=== PATIENT | female | born 1990 | race Two or more races ===

== ENCOUNTER 2016-12-21 16:14 | Inpatient (IN) | payer MEDICAID, OTHER ==
--- NOTE | 2016-12-21 16:30 | EDPHY ---
HPI/HX/ROS/PE/MDM Narrative: CHIEF COMPLAINT: Medical clearance for intermediate; possible methamphetamine in vagina HPI: The patient is a 26 y/o female arriving in [employer] custody from the intermediate for medical clearance. The officer reports they witnessed her push an object up her vagina during a strip search. They believe she has a bag of methamphetamine due to evidence of illicit drugs in her cell. The officer is concerned there may be a large quantity of loose methamphetamine still in her vagina. The patient denies putting drugs in her vagina. She also denies any complaints and agrees to a pelvic exam. REVIEW OF SYSTEMS: Aside from elements discussed in the HPI, a comprehensive 10-point review of systems was reviewed and is negative. PMH: Illicit drug abuse. SOCIAL HISTORY: in [employer] custody. Currently living at the intermediate. PHYSICAL EXAM: General:Patient is alert, in no acute distress. ENT:Eyes are normal to inspection. ENT inspection normal. Neck: Normal inspection. Full range of motion. Respiratory:No respiratory distress. Breath sounds normal bilaterally. Cardiovascular: Tachycardic regular rate and rhythm. Strong peripheral pulses. Normal cap refill. Abdomen:The abdomen is nontender to palpation. There are no peritoneal signs. : Plastic bag removed during pelvic exam. Rectal exam is normal. Back: Normal to inspection. No tenderness to palpation. Skin: Normal color. No rash. Warm and dry. Extremities: Normal appearance. Full range of motion. Neuro: Oriented x3. Normal motor function. Normal sensory function. Slightly tremulous. ED Course: This is a 26 y/o female presenting from the intermediate with reported bag full of methamphetamine in her vagina. She denies any complaints during assessment. She is tachycardic at 110 and slightly tremulous, but otherwise asymptomatic. She consented to pelvic examination and removal of any foreign body found there. Just prior to exam, officer at bedside report a plastic bag fell on the ground next to the patient. Pelvic exam was conducted in presence of female staff and revealed plastic bag that I was able to extract without difficulty. Patient placed on cardiac rn. Plan to consult [facility]. 1642: Consulted with Poison Control. . 1658: Patient's HR is now 180. IV established. 2mg IV Ativan administered. 1700: Consulted with Dr. Madrid, toxicology, he recommended treating with benzodiazepines and fluids until her vitals normalized. 1703: The 12 lead EKG was interpreted by myself. Sinus tachycardia rate 180. See hard copy and/or "tracemaster" electronic copy for interpretation. 1715: Patient transferred to trauma bay. HR 190, RR 46, BP 130/113. Patient is disoriented, unable to follow commands, and shaking. Carpopedal spasms and horizontal nystagmus noted. Total of 6mg IV Ativan administered at this time. Labs drawn including CBC, CHEM, troponin, CK, LFTs, BHCG, tox screen. 1724: Additional 2mg IV Ativan administered (8mg total). 1728: Additional 2mg IV Ativan administered (10mg total). 1732: Additional 2mg IV Ativan administered (12mg total). Respiratory rate and heart rate have remained elevated. 1735: Additional 4mg IV Ativan administered (16mg total). BP 116/73, HR 180, RR 40. 1740: Patient is showing signs of improvement. She is less agitated, though she continues to be tachypneic and tachycardic. Additional 4mg IV Ativan administered (20mg total). 1748: Additional 4mg IV Ativan administered (24mg total). 1752: HR 167, RR 32, BP 120/60. 1756: 39.2C. Will apply passive cooling system. 1759: Additional 4mg IV Ativan administered (28mg total). Agitation significantly reduced at this time. Patient remains tachypneic and tachycardic and is now febrile. Passive cooling applied. 1803: Additional 4mg IV Ativan administered (32mg total). 2nd round of labs ordered. 1808: Consulted again with Dr. Madrid, poison control. She is slowly responding to Ativan. He agrees with our current plan to continue with benzo administration until we reach normal vital signs with consideration for rhabdomyolysis and hyperthermia. 1810: Additional 2mg IV Ativan administered (34mg total). 1817: Core temp 37.9C. 1819: Patient appeared to seize for a short time. Her respiratory effort increased significantly. She is not able to protect her airway at this time and will require intubation. 1821: Respiratory therapy at bedside. 1822: Procedure: Rapid sequence intubation. Indication for the procedure was airway protection and respiratory failure. The patient was preoxygenated with 100% oxygen by face mask. The patient was given the following IV medications: 20mg IV Etomidate, 70mg IV rocuronium. During the first attempt a foreign body that appeared to be a plastic bag was identified. We aborted this attempt, reoxygenated the patient via BVM and then removed with McGills forceps during 2nd intubation attempt. The patient was orally endotracheally intubated under direct visualization with a 7.5 ETT. Tracheal intubation was confirmed with misting on the tube; breath sounds were auscultated equally bilaterally; appropriate color change with [place] End Tidal CO2 detector. Chest X-ray shows ETT in good position. The procedure was performed by myself, Dr. Krueger, in conjunction with PA Martin Vences. 1830: Propofol and vecuronium drip ordered as well as additional x-ray of the abdomen ordered to observe for further foreign bodies. 1835: Consulted with Dr. Cardozo, hospitalist, at patient bedside. She accepts admission to the ICU for methamphetamine overdose. 1837: Chest x-ray shows ET tube in good condition. No obvious foreign bodies on chest or abdomen. I viewed the images myself on the PACS system. 1840: Rectal exam is normal. Hernandez catheter inserted by circuit board repair technician. A time of admission to the ICU, patient has received a total of 34mg Ativan, has been intubated, and is currently on a propofol and vecuronium drip to maintain sedation. Her tox screen is positive for cocaine, opiates, and methamphetamine in addition to benzodiazepines, though that is also indicative of the Ativan she received here. Her x-rays show an appropriately placed ET tube and no obvious additional foreign bodies or abnormalities. Her HR has improved to the 130 range. She has remained normotensive throughout contact. Most recent CK is normal and she is not currently febrile, decreasing likelihood of rhabdomyolysis or persistent hyperthermia. ABG pending. Critical care time spent by me, Dr. Krueger, exclusively with this patient was 120 minutes, exclusive of PA time and exclusive of procedures. The organ system at risk was cardiovascular and neurologic and I gave IVF and large doses of benzodiazepines under close management to prevent worsening of the patient's condition. MDM: This patient presented with report of possible methamphetamine in a bag in her vagina. She consented to pelvic exam and potential foreign body removal, which was performed without incident - no retained powder or other substance was noted. While in the ED, the patient decompensated rather quickly, becoming severely tachycardic, tachypneic, agitated and tremulous. She eventually responded to a very large dose of Ativan. I considered intubation and paralysis throughout, but as benzos were working and agitating decreasing, with stable BP and only a mild elevation in core temperature, it appeared we could likely avoid this. The patient remained conscious throughout. The patient had a brief episode approximately two hours into her ED stay which seemed to represent either a seizure or possibly an airway event, so we rapidly moved to RSI patient with etomidate and rocuronium. While intubating, an empty plastic bag was found in the patient's pharynx. It is unclear whether the patient had the bag in her mouth the whole time or possibly vomited it up. This was removed without incident and the patient was successfully intubated. Urine tox subsequently shows positive opiates, cocaine and meth, so this appears to be a polypharm overdose. I consulted with poison control several times over the course of care, and they do not recommend vaginal douche/irrigation etc. - Data Points Laboratory Results: Laboratory Results 12/21/16 17:13 12/21/16 17:13 12/21/16 12/21/16 12/21/16 17:13 17:13 17:13 WBC 10.72 10^3/uL H 10^3/uL (3.80-9.50) RBC 5.24 10^6/uL 10^6/uL (4.18-5.33) Hgb 16.1 g/dL g/dL (12.6-16.3) Hct 47.2 % H % (38.0-47.0) MCV 90.1 fL fL (81.5-99.8) MCH 30.7 pg pg (27.9-34.1) MCHC 34.1 g/dL g/dL (32.4-36.7) RDW 12.5 % % (11.5-15.2) Plt Count 180 10^3/uL 10^3/uL (150-400) MPV 11.9 fL H fL (8.7-11.7) Neut % (Auto) 69.4 % % (39.3-74.2) Lymph % (Auto) 22.1 % % (15.0-45.0) [place] % (Auto) 7.8 % % (4.5-13.0) Eos % (Auto) 0.0 % L % (0.6-7.6) Baso % (Auto) 0.3 % % (0.3-1.7) Nucleat RBC Rel Count 0.0 % % (0.0-0.2) Absolute Neuts (auto) 7.44 10^3/uL H 10^3/uL (1.70-6.50) Absolute Lymphs (auto) 2.37 10^3/uL 10^3/uL (1.00-3.00) Absolute Monos (auto) 0.84 10^3/uL H 10^3/uL (0.30-0.80) Absolute Eos (auto) 0.00 10^3/uL L 10^3/uL (0.03-0.40) Absolute Basos (auto) 0.03 10^3/uL 10^3/uL (0.02-0.10) Absolute Nucleated RBC 0.00 10^3/uL 10^3/uL (0-0.01) Immature Gran % 0.4 % % (0.0-1.1) Immature Gran # 0.04 10^3/uL 10^3/uL (0.00-0.10) Sodium 151 mEq/L H mEq/L (134-144) Potassium 4.4 mEq/L mEq/L (3.5-5.2) Chloride 114 mEq/L H mEq/L (97-110) Carbon Dioxide 19 mEq/l L mEq/l (22-31) Anion Gap 18 mEq/L H mEq/L (8-16) BUN 9 mg/dL mg/dL (7-23) Creatinine 0.6 mg/dL mg/dL (0.6-1.0) Estimated GFR > 60 Glucose 119 mg/dL H mg/dL (70-100) Calcium 9.9 mg/dL mg/dL (8.5-10.4) Total Bilirubin 0.6 mg/dL mg/dL (0.1-1.4) Conjugated Bilirubin 0.5 mg/dL mg/dL (0.0-0.5) Unconjugated Bilirubin 0.1 mg/dL mg/dL (0.0-1.1) AST 48 IU/L H IU/L (14-46) ALT 61 IU/L H IU/L (9-52) Alkaline Phosphatase 93 IU/L IU/L (38-126) Creatine Kinase 111 IU/L IU/L (0-156) Troponin I < 0.012 ng/mL ng/mL (0-0.034) Total Protein 7.4 g/dL g/dL (6.3-8.2) Albumin 4.6 g/dL g/dL (3.5-5.0) Beta HCG, Qual NEGATIVE Medications Given: Discontinued Medications Etomidate (Etomidate) 20 mg IVP ONCE ONE Stop: 12/21/16 19:25 Last Admin: 12/21/16 18:25 Dose: 20 mg Etomidate (Etomidate) 20 mg IVP ONCE ONE Stop: 12/21/16 18:26 Last Admin: 12/21/16 18:25 Dose: 20 mg Sodium Chloride (Ns) 3,000 mls @ 0 mls/hr IV ONCE ONE PRN Reason: Wide Open Stop: 12/21/16 18:49 Last Admin: 12/21/16 18:50 Dose: 3,000 mls Lorazepam (Ativan Injection) 2 mg IVP EDNOW ONE Stop: 12/21/16 17:01 Last Admin: 12/21/16 17:07 Dose: 2 mg Lorazepam (Ativan Injection) 32 mg IVP EDNOW ONE Stop: 12/21/16 18:13 Last Admin: 12/21/16 18:35 Dose: 32 mg Lorazepam (Ativan Injection) 2 mg IVP EDNOW ONE Stop: 12/21/16 18:37 Last Admin: 12/21/16 18:15 Dose: 2 mg Lorazepam (Ativan Injection) 2 mg IVP EDNOW ONE Stop: 12/21/16 17:16 Last Admin: 12/21/16 17:20 Dose: 2 mg General Time Seen by Provider: 12/21/16 16:17 Initial Vital Signs: Initial Vital Signs Temperature (C) 36.8 C 12/21/16 16:14 Heart Rate 111 H 12/21/16 16:14 Respiratory Rate 16 12/21/16 16:14 Blood Pressure 109/74 12/21/16 16:14 O2 Sat (%) 97 04/16/17 16:14 O2 Delivery Mode [Post Ventilator Procedure 1st] O2 Delivery Mode [Procedural Ventilator 4th] O2 Delivery Mode [Procedural Ventilator 2nd] O2 Delivery Mode [Procedural Non-Rebreather Mask 1st] O2 Delivery Mode Nasal Cannula O2 (L/minute) 4 Allergies/Adverse Reactions: No Known Allergies Allergy (Unverified 12/21/16 16:17) Home Medications: Medication Instructions Recorded NK [No Known Home Meds] 12/21/16 Departure - Departure Disposition: [facility] Inpatient Acute Clinical Impression: Methamphetamine abuse Amphetamine overdose Qualifiers: Encounter type: initial encounter Injury intent: undetermined intent Qualified Code(s): T43.624A - Poisoning by amphetamines, undetermined, initial encounter Condition: Critical Report Scribed for: Diego Krueger Report Scribed by: Ana María Martínez Date of Report: 12/21/16 Time of Report: 16:31 Physician Review and Approval Statement: Portions of this note were transcribed by an ED scribe. I personally performed the history, physical exam, and medical decision making; and confirm the accuracy of the information in the transcribed note.
[2016-12-21] MEDS ORDERED: LORazepam 2 MG/ML INJ IVP ONE ×4 (17:00→18:36)
--- NOTE | 2016-12-21 17:10 | CPEKG ---
Heart Rate: 180 RR Interval: 333 P-R Interval: 77 QRSD Interval: 114 QT Interval: 252 QTC Interval: 437 P Pennock: 0 QRS Pennock: 110 T Wave Pennock: -49 EKG Severity - ABNORMAL ECG - EKG Impression: SINUS TACHYCARDIA EKG Impression: VENTRICULAR PREMATURE COMPLEX EKG Impression: INCOMPLETE RIGHT BUNDLE BRANCH BLOCK EKG Impression: INFERIOR Q WAVES, PROBABLY NORMAL VARIATION EKG Impression: ST DEPRESSION, CONSIDER ISCHEMIA, INF LEADS Electronically Signed By: Diego Krueger 21-Dec-2016 20:06:16
[2016-12-21] MEDS ORDERED: LORazepam 2 MG/ML INJ ONE ×8 (17:15→18:02)
[2016-12-21] MEDS ORDERED: CEFAZOLIN 1 GM/DEXTROSE/50 ML BAG IV ONE (17:21)
[2016-12-21 17:43] LABS: % IMMATURE GRANULYOCYTES 0.4 % (0.0-1.1); ABSOLUTE IMMATURE GRANULOCYTES 0.04 10^3/uL (0.00-0.10); ADD DIFF? NO; ADD MORPH? NO; ADD SCAN? NO; ATYPICAL LYMPHOCYTE FLAG 10 (0-99); FRAGMENT RBC FLAG 0 (0-99); HEMATOCRIT 47.2 % (38.0-47.0); HEMOGLOBIN 16.1 g/dL (12.6-16.3); LEFT SHIFT FLG 0 (0-99); LIPEMIA HEMOLYSIS FLAG 90 (0-99); MEAN CELL HEMOGLOBIN 30.7 pg (27.9-34.1); MEAN CELL HEMOGLOBIN CONCENTR. 34.1 g/dL (32.4-36.7); MEAN CELL VOLUME 90.1 fL (81.5-99.8); MEAN PLATELET VOLUME 11.9 fL (8.7-11.7); PLATELET CLUMPS FLAG 10 (0-99); PLATELET COUNT 180 10^3/uL (150-400); RED BLOOD CELL COUNT 5.24 10^6/uL (4.18-5.33); RED CELL DISTRIBUTION WIDTH 12.5 % (11.5-15.2)
[2016-12-21 17:57] LABS: ALANINE AMINOTRANSFERASE 61 IU/L (9-52); ALBUMIN 4.6 g/dL (3.5-5.0); ALKALINE PHOSPHATASE 93 IU/L (38-126); ANION GAP 18 mEq/L (8-16); ASPARTATE AMINOTRANSFERASE 48 IU/L (14-46); BILIRUBIN,TOTAL 0.6 mg/dL (0.1-1.4); BILIRUBIN-CONJUGATED 0.5 mg/dL (0.0-0.5); BILIRUBIN-UNCONJUGATED 0.1 mg/dL (0.0-1.1); CALCIUM 9.9 mg/dL (8.5-10.4); CARBON DIOXIDE 19 mEq/l (22-31); CHLORIDE 114 mEq/L (97-110); CREATININE 0.6 mg/dL (0.6-1.0); GLOMERULAR FILTRATION RATE > 60; GLUCOSE 119 mg/dL (70-100); POTASSIUM 4.4 mEq/L (3.5-5.2); SODIUM 151 mEq/L (134-144); TOTAL PROTEIN 7.4 g/dL (6.3-8.2)
[2016-12-21 18:08] LABS: TROPONIN I < 0.012 ng/mL (0-0.034)
[2016-12-21] MEDS ORDERED: ROCURONIUM IVP SCH (18:25)
[2016-12-21] MEDS ORDERED: NS IVP SCH (18:25)
[2016-12-21] MEDS ORDERED: ETOMIDATE 20 MG/10 ML VIAL IVP ONE ×2 (18:25→19:24)
[2016-12-21] MEDS ORDERED: VECURONIUM BROMIDE 50 MG in D5W 50 ML IV SCH (18:30)
[2016-12-21] MEDS ORDERED: PROPOFOL/EMULSION 1,000 MG/100 ML BOTTLE IV ONE (18:30)
[2016-12-21] MEDS ORDERED: NS 3,000 ML IV ONE (18:48)
[2016-12-21] MEDS ORDERED: PROPOFOL/EMULSION 100 ML IV SCH ×2 (19:00→20:30)
[2016-12-21] MEDS ORDERED: ROCURONIUM 100 MG/10 ML VIAL ONE (19:25)
[2016-12-21] MEDS ORDERED: ETOMIDATE 40 MG/20 ML INJ ONE (19:25)
[2016-12-21 19:37] LABS: BASE EXCESS -6.9 mEq/L (-2.5-2.5); BICARBONATE 19 mEq/L (22-26); MEASURED OXYGEN SATURATION 100 % (92-95); PCO2 45 mmHg (34-38); PO2 340 mmHg (65-75); TCO2 20 mEq/L (23-27)
[2016-12-21 19:38] LABS: END TIDAL CO2 35; O2 CONCENTRATIION 80 % (0-100); P/F RATIO 425 RATIO; PRESSURE SUPPORT 7; SIMV YES
[2016-12-21] MEDS ORDERED: HALOPERIDOL LACT 5 MG/ML INJ IVP PRN (20:06)
[2016-12-21] MEDS ORDERED: LORazepam 2 MG/ML INJ IVP PRN (20:06)
[2016-12-21] MEDS ORDERED: ACETAMINOPHEN 650 MG SUPP PR PRN (20:06)
[2016-12-21 20:32] LABS: % IMMATURE GRANULYOCYTES 0.4 % (0.0-1.1); ABSOLUTE IMMATURE GRANULOCYTES 0.03 10^3/uL (0.00-0.10); ADD DIFF? NO; ADD MORPH? NO; ADD SCAN? NO; ATYPICAL LYMPHOCYTE FLAG 0 (0-99); FRAGMENT RBC FLAG 0 (0-99); HEMATOCRIT 38.3 % (38.0-47.0); LEFT SHIFT FLG 0 (0-99); LIPEMIA HEMOLYSIS FLAG 90 (0-99); MEAN CELL HEMOGLOBIN 31.3 pg (27.9-34.1); MEAN CELL HEMOGLOBIN CONCENTR. 33.9 g/dL (32.4-36.7); MEAN CELL VOLUME 92.3 fL (81.5-99.8); MEAN PLATELET VOLUME 12.1 fL (8.7-11.7); PLATELET CLUMPS FLAG 0 (0-99); PLATELET COUNT 141 10^3/uL (150-400); RED BLOOD CELL COUNT 4.15 10^6/uL (4.18-5.33); RED CELL DISTRIBUTION WIDTH 12.5 % (11.5-15.2)
--- NOTE | 2016-12-21 20:32 | PDGENHP ---
History and Physical - Chief Complaint overdose - History of Present Illness 26 year old female brought in from intermediate with concerns that she may have pushed a baggie full of drugs, presumed to be methamphetamine, into her vagina during a strip search in intermediate. She was noted to have pushed something into her vagina, and given that the concern was that it was drugs, she was brought to the ER for further evaluation. In the ER, something was noted to fall on the floor immediately prior to having a pelvic exam performed and found to be an empty plastic bag. Another plastic bag was found inside her vagina on pelvic exam. She was initially stable in the ER, but then had either a seizure or a respiratory event or both, was emergently intubated and found to have another empty bag in the pharynx which was also empty. She became very tachycardic in the ER we well as hyperthermic, her BP remained stable. A rectal exam revealed no foreign body. Alf staff confirmed a large amount of meth has been present in the intermediate recently, and therefore believe that the baggies contained meth. Per toxicology recommendation, patient was given ativan with a goal of normal vital signs--she received 34 mg of ativan in the ER. Patient was intubated, sedated and paralyzed at the time of my evaluation, and therefore no history was obtained from the patient, but rather from chart review as well as ER and warehouse traffic supervisor report. History Information - Allergies/Home Medication List Allergies/Adverse Reactions: No Known Allergies Allergy (Unverified 12/21/16 16:17) Home Medications: NK [No Known Home Meds] 12/21/16 [Last Taken Unknown] I have personally reviewed and updated: family history, medical history, social history, surgical history - Past Medical History Additional medical history: polysubstance abuse including meth and cocaine - Surgical History Reports: no pertinent surgical hx Additional surgical history: not available per chart review - Family History Additional family history: unavailable by chart review - Social History Smoking Status: Current every day smoker Alcohol Use: Other (reported use of meth/cocaine but otherwise hx not obtainalbe ) Additional social history: currently in intermediate Review of Systems Review of Systems: unobtainable 2/2 intubation/sedation Physical Exam Temp Pulse Resp BP Pulse Ox 37 C 133 H 24 H 121/74 H 100 12/21/16 19:46 12/21/16 19:46 12/21/16 19:46 12/21/16 19:46 12/21/16 19:46 Constitutional: appears nourished, not in pain Eyes: PERRL, EOMI Ears, Nose, Mouth, Throat: other (intubated, ETT w/o sig secretions) Cardiovascular: no murmur, rub, or gallop, tachycardia, No edema Respiratory: no rales or rhonchi, clear to auscultation Gastrointestinal: soft, non-tender abdomen, no palpable masses Skin: warm, normal color Musculoskeletal: No asymmetric calves Neurologic: other (intubated/sedated/paralyzed but had been a&o, ambulating prior to admit) Lab Data & Imaging Review 12/21/16 17:13 12/21/16 17:13 WBC 10.72 10^3/uL (3.80-9.50) H 12/21/16 17:13 RBC 5.24 10^6/uL (4.18-5.33) 12/21/16 17:13 Hgb 16.1 g/dL (12.6-16.3) 12/21/16 17:13 Hct 47.2 % (38.0-47.0) H 12/21/16 17:13 MCV 90.1 fL (81.5-99.8) 12/21/16 17:13 MCH 30.7 pg (27.9-34.1) 12/21/16 17:13 MCHC 34.1 g/dL (32.4-36.7) 12/21/16 17:13 RDW 12.5 % (11.5-15.2) 12/21/16 17:13 Plt Count 180 10^3/uL (150-400) 12/21/16 17:13 MPV 11.9 fL (8.7-11.7) H 12/21/16 17:13 Neut % (Auto) 69.4 % (39.3-74.2) 12/21/16 17:13 Lymph % (Auto) 22.1 % (15.0-45.0) 12/21/16 17:13 [place] % (Auto) 7.8 % (4.5-13.0) 12/21/16 17:13 Eos % (Auto) 0.0 % (0.6-7.6) L 12/21/16 17:13 Baso % (Auto) 0.3 % (0.3-1.7) 12/21/16 17:13 Nucleat RBC Rel Count 0.0 % (0.0-0.2) 12/21/16 17:13 Absolute Neuts (auto) 7.44 10^3/uL (1.70-6.50) H 12/21/16 17:13 Absolute Lymphs (auto) 2.37 10^3/uL (1.00-3.00) 12/21/16 17:13 Absolute Monos (auto) 0.84 10^3/uL (0.30-0.80) H 12/21/16 17:13 Absolute Eos (auto) 0.00 10^3/uL (0.03-0.40) L 12/21/16 17:13 Absolute Basos (auto) 0.03 10^3/uL (0.02-0.10) 12/21/16 17:13 Absolute Nucleated RBC 0.00 10^3/uL (0-0.01) 12/21/16 17:13 Immature Gran % 0.4 % (0.0-1.1) 12/21/16 17:13 Immature Gran # 0.04 10^3/uL (0.00-0.10) 12/21/16 17:13 Puncture Site LEFT RADIAL 12/21/16 18:40 Patient Temperature 39.0 DEGREES 12/21/16 18:40 pCO2 45 mmHg (34-38) H 12/21/16 18:40 pO2 340 mmHg (65-75) H 12/21/16 18:40 Total CO2 20 mEq/L (23-27) L 12/21/16 18:40 ABG pH 7.26 (7.35-7.45) L 12/21/16 18:40 ABG PO2/FiO2 Ratio 425 RATIO 12/21/16 18:40 ABG O2 Saturation 100 % (92-95) H 12/21/16 18:40 ABG Base Excess -6.9 mEq/L (-2.5-2.5) L 12/21/16 18:40 O2 Concentration % 80 % (0-100) 12/21/16 18:40 Set Respiration Rate 24 12/21/16 18:40 SIMV YES 04/16/17 18:40 Tidal Volume 450 12/21/16 18:40 End Tidal CO2 35 12/21/16 18:40 PEEP 45 12/21/16 18:40 Pressure Support 7 12/21/16 18:40 Sodium 151 mEq/L (134-144) H 12/21/16 17:13 Potassium 4.4 mEq/L (3.5-5.2) 12/21/16 17:13 Chloride 114 mEq/L (97-110) H 12/21/16 17:13 Carbon Dioxide 19 mEq/l (22-31) L 12/21/16 17:13 Bicarbonate 19 mEq/L (22-26) L 12/21/16 18:40 Anion Gap 18 mEq/L (8-16) H 12/21/16 17:13 BUN 9 mg/dL (7-23) 12/21/16 17:13 Creatinine 0.6 mg/dL (0.6-1.0) 12/21/16 17:13 Estimated GFR > 60 12/21/16 17:13 Glucose 119 mg/dL (70-100) H 12/21/16 17:13 Calcium 9.9 mg/dL (8.5-10.4) 12/21/16 17:13 Total Bilirubin 0.6 mg/dL (0.1-1.4) 12/21/16 17:13 Conjugated Bilirubin 0.5 mg/dL (0.0-0.5) 12/21/16 17:13 Unconjugated Bilirubin 0.1 mg/dL (0.0-1.1) 12/21/16 17:13 AST 48 IU/L (14-46) H 12/21/16 17:13 ALT 61 IU/L (9-52) H 12/21/16 17:13 Alkaline Phosphatase 93 IU/L (38-126) 12/21/16 17:13 Creatine Kinase 111 IU/L (0-156) 12/21/16 17:13 Troponin I < 0.012 ng/mL (0-0.034) 12/21/16 17:13 Total Protein 7.4 g/dL (6.3-8.2) 12/21/16 17:13 Albumin 4.6 g/dL (3.5-5.0) 12/21/16 17:13 Beta HCG, Qual NEGATIVE 12/21/16 17:13 Urine Opiates Screen NON-NEGATIVE (NEGATIVE) H 12/21/16 18:40 Urine Barbiturates NEGATIVE (NEGATIVE) 12/21/16 18:40 Ur Phencyclidine Scrn NEGATIVE (NEGATIVE) 12/21/16 18:40 Ur Amphetamine Screen NON-NEGATIVE (NEGATIVE) H 12/21/16 18:40 U Benzodiazepines Scrn NON-NEGATIVE (NEGATIVE) H 12/21/16 18:40 Urine Cocaine Screen NON-NEGATIVE (NEGATIVE) H 12/21/16 18:40 U Marijuana (THC) Screen NEGATIVE (NEGATIVE) 12/21/16 18:40 Visualized and Interpreted Chest x-ray results: Yes Chest X-Ray results: no infiltrate, other (no radioopaque foreign body, ett in place) Visualized and Interpreted EKG results: Yes EKG additional interpertation: ST, ? RBBB, significant artifact Assessment & Plan Assessment: 26 yo F brought in from intermediate with concerns of drug baggie in vagina pw drug overdose presumed meth # inadvertent drug overdose: presumed to be methamphetamine though also has cocaine present on utox. Discussed with ER/toxicology and management is largely supportive monitoring for htn, tachycardia, hyperthermia. Benzodiazepines to manage s/s hyperadrenergic state. Remains risk of cardiac arrest and rhabdomyolysis as well as seizure. Patient will be monitored in ICU, remaining intubated as well as sedated. Will repeat CK but initial level normal. Will monitor for metabolic acidosis and follow trops. No evidence of other foreign bodies noted on xray, but on review with radiology, xray is not likely to reveal a baggie of drugs and would consider CT for further evaluation when patient is more stable. # agma: in the setting of above, gap has actually closed, will continue to monitor # polysubstance abuse: as per problem 1, with multiple bags of drugs, presumed meth, found inside patients body and two of which ruptured. Patient currently in intermediate but would benefit from drug counseling when possible. # dispo: IP status, high risk presenting issues requiring close monitoring and ICU stay Patient new to my care. Old records reviewed and summarized as above. Care plan reviewed with ER doctor.
[2016-12-21 20:39] LABS: ANION GAP 10 mEq/L (8-16); CARBON DIOXIDE 20 mEq/l (22-31); CHLORIDE 119 mEq/L (97-110); CREATININE 0.7 mg/dL (0.6-1.0); GLOMERULAR FILTRATION RATE > 60; GLUCOSE 103 mg/dL (70-100); POTASSIUM 3.9 mEq/L (3.5-5.2); SODIUM 149 mEq/L (134-144)
[2016-12-21 20:50] LABS: TROPONIN I < 0.012 ng/mL (0-0.034)
[2016-12-21] MEDS ORDERED: fentaNYL 100 MCG/2 ML INJ IVP PRN (21:01)
[2016-12-21] MEDS ORDERED: MIDAZOLAM 2 MG/2 ML VIAL IVP PRN (21:01)
[2016-12-21] MEDS: NS 1,000 ML IV SCH (21:09)
[2016-12-21] MEDS: LORazepam 2 MG/ML INJ IVP PRN (21:09)
[2016-12-21 22:05] LABS: BASE EXCESS -5.9 mEq/L (-2.5-2.5); BICARBONATE 19 mEq/L (22-26); MEASURED OXYGEN SATURATION 98 % (92-95); PCO2 35 mmHg (34-38); PO2 133 mmHg (65-75); TCO2 20 mEq/L (23-27)
[2016-12-21 22:07] LABS: END TIDAL CO2 36; O2 CONCENTRATIION 40 % (0-100); P/F RATIO 333 RATIO; PATIENT RATE 32; PRESSURE SUPPORT 7; SIMV YES
[2016-12-21] MEDS ORDERED: LORazepam 40 MG in D5W 40 ML IV SCH (22:30)
[2016-12-21] MEDS: fentaNYL/NACL 100 ML IV SCH (22:33)
[2016-12-21] MEDS: DEXMEDETOMIDINE HCL 400 MCG in NS 100 ML IV SCH (23:35)
[2016-12-22] MEDS: DEXMEDETOMIDINE HCL 400 MCG in NS 100 ML IV SCH ×2 (02:49→09:38)
[2016-12-22 05:28] LABS: % IMMATURE GRANULYOCYTES 0.3 % (0.0-1.1); ABSOLUTE IMMATURE GRANULOCYTES 0.04 10^3/uL (0.00-0.10); ADD DIFF? NO; ADD MORPH? NO; ADD SCAN? NO; ATYPICAL LYMPHOCYTE FLAG 10 (0-99); FRAGMENT RBC FLAG 0 (0-99); HEMATOCRIT 36.3 % (38.0-47.0); HEMOGLOBIN 12.2 g/dL (12.6-16.3); LEFT SHIFT FLG 0 (0-99); LIPEMIA HEMOLYSIS FLAG 80 (0-99); MEAN CELL HEMOGLOBIN CONCENTR. 33.6 g/dL (32.4-36.7); MEAN CELL VOLUME 92.1 fL (81.5-99.8); MEAN PLATELET VOLUME 11.4 fL (8.7-11.7); PLATELET CLUMPS FLAG 10 (0-99); PLATELET COUNT 117 10^3/uL (150-400); RED BLOOD CELL COUNT 3.94 10^6/uL (4.18-5.33); RED CELL DISTRIBUTION WIDTH 12.8 % (11.5-15.2)
[2016-12-22 05:51] LABS: ALANINE AMINOTRANSFERASE 49 IU/L (9-52); ALKALINE PHOSPHATASE 66 IU/L (38-126); ANION GAP 8 mEq/L (8-16); ASPARTATE AMINOTRANSFERASE 40 IU/L (14-46); BILIRUBIN,TOTAL 0.7 mg/dL (0.1-1.4); CALCIUM 7.3 mg/dL (8.5-10.4); CARBON DIOXIDE 22 mEq/l (22-31); CHLORIDE 118 mEq/L (97-110); CREATININE 0.5 mg/dL (0.6-1.0); GLOMERULAR FILTRATION RATE > 60; GLUCOSE 116 mg/dL (70-100); MAGNESIUM 1.8 mg/dL (1.6-2.3); POTASSIUM 3.5 mEq/L (3.5-5.2); SODIUM 148 mEq/L (134-144); TOTAL PROTEIN 5.2 g/dL (6.3-8.2)
[2016-12-22 06:02] LABS: TROPONIN I 0.012 ng/mL (0-0.034)
[2016-12-22 06:29] LABS: CK-MB INTERPRETATION NEGATIVE (NEGATIVE)
[2016-12-22 06:39] LABS: CREATINE KINASE-MB FRACTION 6.47 ng/mL (0-3.19)
[2016-12-22] MEDS: fentaNYL/NACL 100 ML IV SCH (07:12)
[2016-12-22] MEDS ORDERED: CHLORHEXIDINE GLUCONATE 15 ML UDL PO SCH (08:00)
[2016-12-22] MEDS ORDERED: LIDOCAINE 2% JELLY 5 ML TUBE TP ONE (08:42)
[2016-12-22] MEDS ORDERED: LIDOCAINE 1% 30 ML SDV MISC ONE (08:42)
[2016-12-22] MEDS ORDERED: PANTOPRAZOLE SODIUM 40 MG in NS 100 ML IV SCH (09:00)
[2016-12-22] MEDS: ENOXAPARIN 40 MG/0.4 ML SYR SC SCH (09:42)
--- NOTE | 2016-12-22 09:51 | GCON ---
[f rep st] CONSULTATION DENTURE MODEL MAKER CONSULTATION REASON FOR ADMISSION: Methamphetamine overdose, respiratory failure. HISTORY OF PRESENT ILLNESS: The patient is a 26-year-old female without known past medical history. She was brought in from half-way. She was about to undergo a strip search and she pushed a baggy full of drugs, thought to be methamphetamines, into her vagina. During a pelvic exam in the emergency r oom, an empty plastic bag was found. She had either seizure or acute respiratory event in the emerg ency room, for which she was subsequently intubated, placed on mechanical ventilation. She was subs equently admitted to intensive care unit. She was given increased amounts of Ativan. Currently, harinder mondragon is sedated with Precedex on mechanical ventilation. All history is gleaned from the medical recor d. She was markedly tachycardic on presentation. This has subsequently resolved. PAST MEDICAL HISTORY: None. PAST SURGICAL HISTORY: Unknown. ALLERGIES: No known allergies to medications. MEDICATIONS AT HOME: Unknown. SOCIAL HISTORY: Current daily smoker. Unknown alcohol use, but meth and cocaine use is obvious. PHYSICAL EXAM: VITAL SIGNS: Blood pressure is 108/72, pulse 85, respirations 26, temperature 37.6, oxygen saturation 100% on mechanical ventilation. GENERAL: She is a well-developed, well-nourishe d 26-year-old female, who is sedated on mechanical ventilation. HEENT: Eyes: JESSICA. EOMI. Throa t: Endotracheal tube is in good position. NECK: Supple. No cervical adenopathy. HEART: Regular rate and rhythm, without murmurs, rubs, or gallops. LUNGS: Clear to auscultation. No wheeze or r honchi. ABDOMEN: Soft, nontender. Bowel sounds are present in all 4 quadrants. EXTREMITIES: No clubbing, cyanosis, or edema. LABORATORIES: White count 11.9, hemoglobin of 12, hematocrit 36, platelet count is 117. Sodium 140 , potassium 3.5, chloride 118, CO2 is 22, BUN 6, creatinine 0.5, glucose is 116. Urine drug screen non-negative for opiates, amphetamines, benzodiazepines, and cocaine. Arterial blood gas: PH 7.34, pCO2 35, PO2 of 133, bicarb 20, oxygen saturation 98%. This is on IMV of 24, tidal volume of 500, +7 pressure support, +5 of PEEP. IMAGING: Chest x-ray, reviewed by myself, shows an elevated right hemidiaphragm, with some possible right lower lobe atelectasis. IMPRESSION: 1. Acute respiratory failure. 2. Right lower lobe atelectasis. 3. Likely methamphetamine overdose. 4. Sedation adequate. 5. DVT and PE prophylaxis. 6. Stress ulcer prophylaxis. RECOMMENDATIONS: 1. Will perform fiberoptic bronchoscopy at soonest. 2. Will wean from mechanical ventilation, likely soon. 3. Close cardiovascular monitoring. 4. DVT and PE prophylaxis. 5. Stress ulcer prophylaxis. 6. Early ambulation. /[id number]/MODL
--- NOTE | 2016-12-22 09:56 | GPN ---
[f rep st] PROCEDURE NOTE PROCEDURE: Fiberoptic bronchoscopy. INDICATION: Mucus plugging. ANESTHESIA GIVEN: She is currently sedated on mechanical ventilation. She received 1% lidocaine to pically. DESCRIPTION OF PROCEDURE: The procedure was performed in the intensive care unit with continuous pu lse ox, EKG, and blood pressure monitoring. Please note, the patient is on mechanical ventilation w hich is by definition a closed system. She poses no risk for airborne pathogens and 95 masks were u sed throughout the procedure. Bronchoscope was entered through a #7.5 endotracheal tube. The distal trachea and malachi were visua lized and showed no endobronchial lesion, normal-appearing mucosa. Bronchoscope was entered in the left lung. Left upper lobe, lingula, left lower lobe including subsegments were visualized and show ed no endobronchial lesions and normal appearing mucosa. Bronchoscope was entered in the right lung . Right upper lobe was visualized. It showed no endobronchial lesion and normal-appearing mucosa. Bronchoscope was entered in the right middle lobe. There was a large mucus plug in the right middl e lobe that was therapeutically aspirated. Bronchoscope was then entered in the right lower lobe. There was a moderate amount of a creamy white secretions in the right lower lobe. These were therap eutically aspirated. Bronchoalveolar lavage taken from the right lower lobe. This was sent for C a nd S, and fungal cultures. Patient tolerated the procedure well. There were no apparent complicati ons. Portable chest x-ray has been called for. /[id number]/MODL
[2016-12-22 11:54] LABS: BASE EXCESS -2.3 mEq/L (-2.5-2.5); BICARBONATE 21 mEq/L (22-26); CPAP YES; END TIDAL CO2 37; MEASURED OXYGEN SATURATION 99 % (92-95); O2 CONCENTRATIION 40 % (0-100); P/F RATIO 353 RATIO; PATIENT RATE 30; PCO2 31 mmHg (34-38); PO2 141 mmHg (65-75); PRESSURE SUPPORT 7; TCO2 22 mEq/L (23-27)
[2016-12-22] MEDS: AMPICILLIN/SULBACTAM 3 GM in NS 100 ML IV SCH ×3 (11:54→23:56)
--- NOTE | 2016-12-22 14:09 | HOSPPROG ---
Hospitalist Progress Note Assessment/Plan: * inadvertent overdose methamphetamine cocaine opiates * acute respiratory failure * hopefully will be extubated * aspiration pneumonia * Unasyn started Subjective: no events overnight. Is due to be weaned to extubation hopefully Objective: Vital Signs Temp Pulse Resp BP Pulse Ox 38.4 C H 96 27 H 128/73 H 100 12/22/16 12:00 12/22/16 12:00 12/22/16 12:00 12/22/16 12:00 12/22/16 12:00 Microbiology 12/22/16 09:25 Gram Stain - Final Lung Right Lower Lobe - Bronchial Washings Laboratory Results 12/22/16 05:15 12/22/16 05:15 12/21/16 12/22/16 12/23/16 05:59 05:59 05:59 Intake Total 3500 Output Total 1200 Balance 2300 discussed with pulmonology - Physical Exam Constitutional: no apparent distress, appears nourished, not in pain Ears, Nose, Mouth, Throat: moist mucous membranes, other ( ETT in place) Cardiovascular: regular rate and rhythym, no murmur, rub, or gallop Respiratory: no respiratory distress, no rales or rhonchi, clear to auscultation Gastrointestinal: normoactive bowel sounds, soft, non-tender abdomen, no palpable masses Skin: warm Neurologic: other ( sedated) ICD10 Worksheet Patient Problems: Problems Problem Status Onset Amphetamine overdose Acute Methamphetamine abuse Acute
[2016-12-22] MEDS: NS 1,000 ML IV SCH (23:57)
[2016-12-23] MEDS: AMPICILLIN/SULBACTAM 3 GM in NS 100 ML IV SCH ×3 (05:14→17:56)
[2016-12-23 05:50] LABS: % IMMATURE GRANULYOCYTES 0.6 % (0.0-1.1); ABSOLUTE IMMATURE GRANULOCYTES 0.11 10^3/uL (0.00-0.10); ADD DIFF? NO; ADD MORPH? NO; ADD SCAN? NO; ATYPICAL LYMPHOCYTE FLAG 0 (0-99); FRAGMENT RBC FLAG 0 (0-99); HEMATOCRIT 35.6 % (38.0-47.0); HEMOGLOBIN 12.1 g/dL (12.6-16.3); LEFT SHIFT FLG 20 (0-99); LIPEMIA HEMOLYSIS FLAG 90 (0-99); MEAN CELL HEMOGLOBIN 31.3 pg (27.9-34.1); MEAN CELL VOLUME 92.2 fL (81.5-99.8); PLATELET CLUMPS FLAG 10 (0-99); PLATELET COUNT 98 10^3/uL (150-400); RED BLOOD CELL COUNT 3.86 10^6/uL (4.18-5.33); RED CELL DISTRIBUTION WIDTH 12.6 % (11.5-15.2)
[2016-12-23 06:08] LABS: ALANINE AMINOTRANSFERASE 78 IU/L (9-52); ALBUMIN 2.9 g/dL (3.5-5.0); ALKALINE PHOSPHATASE 89 IU/L (38-126); ANION GAP 7 mEq/L (8-16); ASPARTATE AMINOTRANSFERASE 99 IU/L (14-46); BILIRUBIN,TOTAL 1.2 mg/dL (0.1-1.4); CALCIUM 8.4 mg/dL (8.5-10.4); CARBON DIOXIDE 22 mEq/l (22-31); CHLORIDE 108 mEq/L (97-110); CREATININE 0.4 mg/dL (0.6-1.0); GLOMERULAR FILTRATION RATE > 60; GLUCOSE 82 mg/dL (70-100); POTASSIUM 3.5 mEq/L (3.5-5.2); SODIUM 137 mEq/L (134-144); TOTAL PROTEIN 5.4 g/dL (6.3-8.2)
[2016-12-23] MEDS: LORazepam 2 MG/ML INJ IVP PRN ×2 (08:36→22:26)
[2016-12-23] MEDS: ENOXAPARIN 40 MG/0.4 ML SYR SC SCH (08:36)
[2016-12-23] MEDS: NS 1,000 ML IV SCH ×3 (11:49→20:05)
[2016-12-23] MEDS: KETOROLAC 30 MG/1 ML SDV IVP PRN ×2 (12:11→17:56)
[2016-12-23] MEDS: ACETAMINOPHEN 500 MG TAB PO PRN (12:12)
[2016-12-23] MEDS: ONDANSETRON 4 MG/2 ML VIAL IVP PRN ×2 (12:30→17:56)
[2016-12-23] MEDS ORDERED: ONDANSETRON 4 MG/2 ML VIAL ONE (12:43)
--- NOTE | 2016-12-23 15:16 | HOSPPROG ---
Hospitalist Progress Note Assessment/Plan: * inadvertent overdose methamphetamine cocaine opiates * acute respiratory failure * extubated * aspiration pneumonia * continue Unasyn * recheck chest x-ray in the morning * recheck CBC in the a.m. Subjective: extubated. Complaining of chest pain Objective: Vital Signs Temp Pulse Resp BP Pulse Ox 37.8 C 70 32 H 117/72 100 12/23/16 11:59 12/23/16 14:00 12/23/16 14:00 12/23/16 14:00 12/23/16 14:00 Microbiology 12/22/16 09:25 Gram Stain - Final Lung Right Lower Lobe - Bronchial Washings Laboratory Results 12/23/16 05:30 12/23/16 05:30 12/22/16 12/23/16 12/24/16 05:59 05:59 05:59 Intake Total 3500 1560 Output Total 1200 2000 1900 Balance 2300 -440 -1900 discussed with pulmonology - Physical Exam Constitutional: no apparent distress, appears nourished, not in pain Eyes: anicteric sclera, EOMI Ears, Nose, Mouth, Throat: moist mucous membranes, hearing normal, ears appear normal Cardiovascular: regular rate and rhythym, no murmur, rub, or gallop Respiratory: no respiratory distress, no rales or rhonchi Gastrointestinal: normoactive bowel sounds, soft, non-tender abdomen, no palpable masses Skin: warm Neurologic: AAOx3 Psychiatric: interacting appropriately, not anxious, not encephalopathic, thought process linear ICD10 Worksheet Patient Problems: Problems Problem Status Onset Amphetamine overdose Acute Methamphetamine abuse Acute
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
[2016-12-24] MEDS: AMPICILLIN/SULBACTAM 3 GM in NS 100 ML IV SCH ×3 (00:12→11:23)
[2016-12-24] MEDS: NS 1,000 ML IV SCH (06:04)
[2016-12-24 06:20] LABS: % IMMATURE GRANULYOCYTES 0.3 % (0.0-1.1); ABSOLUTE IMMATURE GRANULOCYTES 0.03 10^3/uL (0.00-0.10); ADD DIFF? NO; ADD MORPH? NO; ADD SCAN? NO; ATYPICAL LYMPHOCYTE FLAG 0 (0-99); FRAGMENT RBC FLAG 0 (0-99); HEMATOCRIT 33.4 % (38.0-47.0); HEMOGLOBIN 11.6 g/dL (12.6-16.3); LEFT SHIFT FLG 0 (0-99); LIPEMIA HEMOLYSIS FLAG 90 (0-99); MEAN CELL HEMOGLOBIN 31.4 pg (27.9-34.1); MEAN CELL HEMOGLOBIN CONCENTR. 34.7 g/dL (32.4-36.7); MEAN CELL VOLUME 90.5 fL (81.5-99.8); MEAN PLATELET VOLUME 11.7 fL (8.7-11.7); PLATELET CLUMPS FLAG 10 (0-99); PLATELET COUNT 95 10^3/uL (150-400); RED BLOOD CELL COUNT 3.69 10^6/uL (4.18-5.33); RED CELL DISTRIBUTION WIDTH 12.4 % (11.5-15.2)
[2016-12-24 06:45] LABS: ALANINE AMINOTRANSFERASE 63 IU/L (9-52); ALBUMIN 2.5 g/dL (3.5-5.0); ALKALINE PHOSPHATASE 69 IU/L (38-126); ANION GAP 6 mEq/L (8-16); ASPARTATE AMINOTRANSFERASE 66 IU/L (14-46); BILIRUBIN,TOTAL 0.7 mg/dL (0.1-1.4); CALCIUM 7.9 mg/dL (8.5-10.4); CARBON DIOXIDE 24 mEq/l (22-31); CHLORIDE 112 mEq/L (97-110); CREATININE 0.5 mg/dL (0.6-1.0); GLOMERULAR FILTRATION RATE > 60; GLUCOSE 85 mg/dL (70-100); POTASSIUM 3.3 mEq/L (3.5-5.2); SODIUM 142 mEq/L (134-144); TOTAL PROTEIN 4.6 g/dL (6.3-8.2)
[2016-12-24] MEDS: ENOXAPARIN 40 MG/0.4 ML SYR SC SCH (11:18)
[2016-12-24] MEDS: KETOROLAC 30 MG/1 ML SDV IVP PRN ×2 (11:23→17:21)
[2016-12-24] MEDS ORDERED: NICOTINE POLACRILEX 2 MG GUM B PRN (13:49)
[2016-12-24] MEDS ORDERED: NICOTINE 14 MG/24 HR PATCH TD SCH (14:00)
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
[2016-12-24] MEDS ORDERED: POTASSIUM CL 20 MEQ TAB PO ONE (15:28)
--- NOTE | 2016-12-24 15:33 | HOSPPROG ---
Hospitalist Progress Note Assessment/Plan: * inadvertent overdose methamphetamine cocaine opiates * acute respiratory failure * extubated * aspiration pneumonia * repeat chest x-ray shows improvement and atelectasis/pneumonia * will switch to oral Augmentin for short course of antibiotics * thrombocytopenia * probably related to alcohol use * urinary retention * probably related to recent overdose * will continue to watch * disposition * probably back to senior living if she is more ambulatory and can urinate tomorrow Subjective: coughing some. Still having some chest pain. Having some problems with urinary retention requiring straight catheterization this morning Objective: Vital Signs Temp Pulse Resp BP Pulse Ox 36.7 C 61 25 H 108/35 L 100 12/24/16 15:22 12/24/16 15:22 12/24/16 08:00 12/24/16 15:22 12/24/16 15:22 Microbiology 12/22/16 09:25 Gram Stain - Final Lung Right Lower Lobe - Bronchial Washings Laboratory Results 12/24/16 06:10 12/24/16 06:10 12/23/16 12/24/16 12/25/16 05:59 05:59 05:59 Intake Total 1560 2750 Output Total 1999 [id number] [place] [phone] discussed with pulmonology chest x-ray personally viewed interpreted - Physical Exam Constitutional: no apparent distress, appears nourished, not in pain Eyes: anicteric sclera, EOMI Ears, Nose, Mouth, Throat: moist mucous membranes, hearing normal, ears appear normal Cardiovascular: regular rate and rhythym, no murmur, rub, or gallop Respiratory: no respiratory distress, no rales or rhonchi, clear to auscultation Gastrointestinal: normoactive bowel sounds, soft, non-tender abdomen, no palpable masses Skin: warm Neurologic: AAOx3 Psychiatric: interacting appropriately, not anxious, not encephalopathic, thought process linear ICD10 Worksheet Patient Problems: Problems Problem Status Onset Amphetamine overdose Acute Methamphetamine abuse Acute
[2016-12-24] MEDS: NICOTINE 7 MG/24 HR PATCH TD SCH (17:30)
[2016-12-24] MEDS: ACETAMINOPHEN 500 MG TAB PO PRN (18:07)
[2016-12-24] MEDS: AMOXICILLIN/CLAVULANATE POT 875/125 MG TAB PO SCH (20:05)
[2016-12-24] MEDS: LORazepam 2 MG/ML INJ IVP PRN ×2 (20:05→23:58)
[2016-12-25] MEDS: KETOROLAC 30 MG/1 ML SDV IVP PRN ×2 (00:01→09:36)
[2016-12-25 04:57] LABS: % IMMATURE GRANULYOCYTES 0.8 % (0.0-1.1); ABSOLUTE IMMATURE GRANULOCYTES 0.07 10^3/uL (0.00-0.10); ADD DIFF? NO; ADD MORPH? NO; ADD SCAN? NO; ATYPICAL LYMPHOCYTE FLAG 50 (0-99); FRAGMENT RBC FLAG 0 (0-99); HEMATOCRIT 34.8 % (38.0-47.0); HEMOGLOBIN 11.8 g/dL (12.6-16.3); LEFT SHIFT FLG 0 (0-99); LIPEMIA HEMOLYSIS FLAG 90 (0-99); MEAN CELL HEMOGLOBIN 30.7 pg (27.9-34.1); MEAN CELL HEMOGLOBIN CONCENTR. 33.9 g/dL (32.4-36.7); MEAN CELL VOLUME 90.6 fL (81.5-99.8); MEAN PLATELET VOLUME 11.5 fL (8.7-11.7); PLATELET CLUMPS FLAG 0 (0-99); PLATELET COUNT 127 10^3/uL (150-400); RED BLOOD CELL COUNT 3.84 10^6/uL (4.18-5.33); RED CELL DISTRIBUTION WIDTH 12.6 % (11.5-15.2)
[2016-12-25 05:14] LABS: ANION GAP 4 mEq/L (8-16); CALCIUM 8.4 mg/dL (8.5-10.4); CARBON DIOXIDE 24 mEq/l (22-31); CHLORIDE 115 mEq/L (97-110); CREATININE 0.5 mg/dL (0.6-1.0); GLOMERULAR FILTRATION RATE > 60; GLUCOSE 111 mg/dL (70-100); POTASSIUM 3.4 mEq/L (3.5-5.2); SODIUM 143 mEq/L (134-144)
[2016-12-25 08:48] VITALS: RESP 16; TEMP 98.8
[2016-12-25] MEDS: NICOTINE 7 MG/24 HR PATCH TD SCH (09:24)
[2016-12-25] MEDS: AMOXICILLIN/CLAVULANATE POT 875/125 MG TAB PO SCH (09:24)
[2016-12-25] MEDS: ENOXAPARIN 40 MG/0.4 ML SYR SC SCH (09:24)
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
[2016-12-25] MEDS ORDERED: PROTOCOL POTASSIUM 1 DOSE MISC PRN (09:57)
[2016-12-25 11:49] VITALS: BP 105/62; PULSE 56; O2SAT 99
[2016-12-25] MEDS ORDERED: CALCIUM CARBONATE 500 MG CHEWABLE TAB PO PRN (12:53)
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
== END 2016-12-25 14:51 | DRG 163 ==
LOC: EEVIPCON 18:32 → F2N 20:07 → F3E 12-24 15:17
PROVIDERS: ADMIT Internal Medicine; ATTEND Internal Medicine
PROC: 5A1935Z Respiratory Ventilation, Less than 24 Consecutive Hours (ICD-10-PCS; 2016-12-21)
PROC: 0BH17EZ Insertion of Endotracheal Airway into Trachea, Via Natural or Artificial Opening (ICD-10-PCS; 2016-12-21)
PROC: 0B958ZZ Drainage of Right Middle Lobe Bronchus, Via Natural or Artificial Opening Endoscopic (ICD-10-PCS; principal; 2016-12-22)
PROC: 0B968ZZ Drainage of Right Lower Lobe Bronchus, Via Natural or Artificial Opening Endoscopic (ICD-10-PCS; principal; 2016-12-22)
DX: J96.00 Acute respiratory failure, unspecified whether with hypoxia or hypercapnia (principal); J69.0 Pneumonitis due to inhalation of food and vomit; T40.5X1A Poisoning by cocaine, accidental (unintentional), initial encounter; T50.7X1A Poisoning by analeptics and opioid receptor antagonists, accidental (unintentional), initial encounter; D69.6 Thrombocytopenia, unspecified; E87.6 Hypokalemia; R33.9 Retention of urine, unspecified; T19.8XXA Foreign body in other parts of genitourinary tract, initial encounter; Z72.0 Tobacco use; Y92.149 Unspecified place in prison as the place of occurrence of the external cause
CPT/HCPCS: 80305; 92526-GN; 92610-GN; 97116-GP; 97161-GP; 97165-GO; 97530-GO; 97530-GP; J0295; J0690; J1650; J1885; J2060; J2405; J2704; J3010